=== PATIENT | female | born 1970 | race Caucasian/White ===

== ENCOUNTER 2017-05-18 21:27 | Emergency (ER) | payer MEDICARE ==
[~2017-05-18] VITALS: Ht 162.6 cm; Wt 52.6 kg
[2017-05-18 21:34] VITALS: BP_SYST 122
--- NOTE | 2017-05-18 23:20 | NUR ---
Patient to ER bed 3 to gown for evaluation. Side rails up. Report given to SUMIT JARAMILLO AND SUMIT DAWSON.
--- NOTE | 2017-05-18 23:24 | NUR ---
Patient presented to ER c/o cough with phlegm, runny nose, sore throat x 2 days. Throat pain 7/10. Patient denies N&V. Patient afebrile. Patient AAO x 4. No acute distress noted. Will continue to monitor.
--- NOTE | 2017-05-18 23:28 | NUR ---
ER Dr. Perez at bedside examining patient.
--- NOTE | 2017-05-19 00:25 | NUR ---
Patient VSS. No SOB or acute distress noted. Will continue to monitor.
[2017-05-19 01:20] VITALS: BP_SYST 120
--- NOTE | 2017-05-19 01:20 | NUR ---
Patient given written and verbal discharge instructions and verbalizes understanding. ER MD discussed with patient the results and treatment provided. Patient in stable condition. ID arm band removed. Rx of Guiafenesin and Tessalon Perles given. Patient educated on pain management and to follow up with PMD. Pain Scale 0/10. Opportunity for questions provided and answered. Medication side effect fact sheet provided.
== END 2017-05-19 01:20 | disposition home or self-care (01) ==
LOC: SED 21:27
DX: J06.9 Acute upper respiratory infection, unspecified (principal); J45.909 Unspecified asthma, uncomplicated; Z88.6 Allergy status to analgesic agent
CPT/HCPCS: 36415; 86710; 99284